=== PATIENT | female | born 1935 | race Caucasian/White ===

== ENCOUNTER → 2017-04-07 | Outpatient (CLI) | payer MEDICARE, BC | LOC: MC.RAD 12:27 | DX: Z12.31 Encounter for screening mammogram for malignant neoplasm of breast (principal) ==

== ENCOUNTER → 2018-05-04 | Outpatient (CLI) | payer MEDICARE, BC | LOC: MC.RAD 15:20 | DX: Z12.31 Encounter for screening mammogram for malignant neoplasm of breast (principal) ==

== ENCOUNTER → 2019-05-07 | Outpatient (CLI) | payer MEDICARE, BC | LOC: MC.RAD 14:14 | DX: Z12.31 Encounter for screening mammogram for malignant neoplasm of breast (principal) ==